=== PATIENT | female | born 1990 | race Caucasian/White ===

== ENCOUNTER 2016-12-30 03:56 | Inpatient (IN) | payer OTHER ==
[~2016-12-30] VITALS: Ht 167.6 cm; Wt 95.5 kg
[2016-12-30] VITALS (10 sets, daily range): BP systolic 121–132; BP diastolic 59; PULSE 106–125; TEMP 36.8–37.5; O2SAT 96–98; Ht 167.6 cm; Wt 95.5 kg
[~2016-12-30 03:56] MED LIST: ACET-1256 PO
[2016-12-30] MEDS ORDERED: LACTATED RINGER'S 1000ML 1,000 ML IV PRN (04:18)
[2016-12-30] MEDS ORDERED: LACTATED RINGER'S 1000ML 1,000 ML IV SCH ×2 (04:18→08:23)
--- NOTE | 2016-12-30 04:48 | Progress Note ---
Progress Note Date of Service Dec 30, 2016. Progress Note Admit Note 26 F P1001 at 37 weeks admitted to L&D in labor. Patient was seen earlier tonight in [facility] and was found to have a demise. She had an ultrasound done there by L&D nursing staff confirming this but we have no documentation of this. Patient states she had a visit this past Sunday and was fine then with movement up till this morning. No bleeding or leakage of fluid. Cervix is 1/80/-2/vertex. Will admit in labor and get bedside ultrasound to confirm diagnosis of demise. Patient is a prior C- section for breech and was planing to have a TOLAC.
[2016-12-30] MEDS ORDERED: BUTORPHANOL TARTRATE 1 MG/ML VIAL IV PRN ×2 (05:00→06:15)
[2016-12-30] MEDS ORDERED: BUTORPHANOL TARTRATE 1 MG/ML VIAL ONE ×4 (05:00→06:22)
[2016-12-30 05:01] LABS: HEMATOCRIT 38.2 % (37-47); MEAN CELL VOLUME 85.3 fL (80-100); MEAN CORPUSCULAR HEMOGLOBIN 29.9 pg (25-34); MEAN CORPUSCULAR HGB CONC 35.1 g/dl (32-36); MEAN PLATELET VOLUME 10.1 fL (7.4-10.4); PLATELET COUNT 200 K/uL (130-400); RED BLOOD COUNT 4.48 M/uL (4.2-5.4); WHITE BLOOD COUNT 17.03 K/uL (4.8-10.8)
[2016-12-30] MEDS ORDERED: PRENTAB26 PO (05:21)
[2016-12-30] MEDS ORDERED: CITRIC ACID/SODIUM CITRATE 15 ML UDC ONE (05:29)
--- NOTE | 2016-12-30 05:39 | HISTORY & PHYSICAL EXAMINATION ---
DATE OF ADMISSION: 12/30/2016 REASON FOR ADMISSION: at 37 weeks with ongoing labor. HISTORY OF PRESENT ILLNESS: The patient is a 26-year-old female para 1-0-0-1 who presents to labor and delivery at [facility] after having been to [facility] labor and delivery earlier in the night. She states that her labor started earlier this morning when she was at [facility] and they were not able to determine that she had heart tones. An ultrasound confirmed demise. There is no record of that ultrasound that we have from [facility]. The patient will have a formal documented ultrasound here. She has been having no problems during the . Her weight gain has been appropriate and she had her last visit on Sunday with a normal visit. PAST MEDICAL HISTORY: Positive for back spasm, neck pain, and chronic rhinitis. PAST SURGICAL HISTORY: Positive for in the past for a double footling breech. ALLERGIES: AZITHROMYCIN, CLARITHROMYCIN. MEDICATIONS: vitamins. SOCIAL HISTORY: The patient smokes half pack per day. Denies alcohol or drug use. PHYSICAL EXAMINATION: HEENT: Within normal limits. LUNGS: Clear to auscultation. COR: Regular rate and rhythm. ABDOMEN: Gravid with contractions. No bleeding. PELVIC: Cervix is 1, 80%, -2, vertex. EXTREMITIES: Within normal limits. NEUROLOGIC: Intact. FAMILY HISTORY: Noncontributory. ASSESSMENT: Term with demise at 37 weeks. PLAN: Planning for possible .
[2016-12-30] MEDS ORDERED: CITRIC ACID/SODIUM CITRATE 15 ML UDC PO ONE (06:00)
[2016-12-30] MEDS ORDERED: CEFAZOLIN IV 2,000 MG in DEXTROSE 5% 50ML 50 ML IV STA (06:06)
--- NOTE | 2016-12-30 06:25 | Progress Note ---
Progress Note Date of Service Dec 30, 2016. Progress Note Patient is not willing to undergo TOLAC. After counseling her extensively on benefits of TOLAC vs. repeat for demise I counseled her as to the risks of surgery vs. trial of labor. she is aware or risks and is OK to go ahead with planned surgery. She feels she will not be able to undergo labor with a demise. Consents signed and will get OR ready for repeat C- section.
[2016-12-30] MEDS ORDERED: MoRPHine SULFATE PF 1 MG/ML 10 ML AMP/VIAL ONE (07:09)
[2016-12-30] MEDS ORDERED: MIDAZOLAM HCL 1 MG/ML 2ML VIAL ONE (07:09)
[2016-12-30] MEDS ORDERED: OXYTOCIN INJ 10 UNITS/ML VIAL ONE (07:40)
[2016-12-30] MEDS ORDERED: EpHEDrine SULFATE 50MG/5ML SYR ONE (07:40)
[2016-12-30] MEDS ORDERED: ONDANSETRON INJ 2 MG/ML 2 ML VIAL ONE (07:40)
[2016-12-30] MEDS ORDERED: METOCLOPRAMIDE HCL INJ 5 MG/ML 2 ML VIAL ONE (07:40)
[2016-12-30] MEDS ORDERED: PHENYLEPHRINE 100MCG/ML 5ML SYR ONE (07:40)
--- NOTE | 2016-12-30 08:07 | DIAGNOSTIC IMAGING REPORT ---
ULTRASOUND LIMITED CLINICAL HISTORY: demise. COMPARISON STUDY: No priors. FINDINGS: Real-time, grayscale, color Doppler sonography of the gravid uterus is performed. There is a single intrauterine gestation. The femoral length measures 5.96 cm, corresponding to an estimated age of 31 weeks 0 days. No cardiac activity is identified. There is an abnormal/lobulated appearance of the brain. This is only seen on one image and is not well evaluated. There is only trace amniotic fluid. IMPRESSION: 1. No cardiac activity is identified. The appearance is consistent with demise as clinically suspected. 2. The femoral length measurement corresponds to an estimated age of 31 weeks 0 days. 3. The visualized brain is abnormal in appearance but not well evaluated on a single image. Note that this does not constitute an anatomic scan. Electronically signed by: Milton Chua M.D. 12/30/2016 8:06 AM Dictated Date/Time: 12/30/2016 8:03 AM
[2016-12-30] MEDS ORDERED: LACTATED RINGER'S 1000ML 500 ML IV PRN (08:18)
[2016-12-30] MEDS ORDERED: NALOXONE HCL INJ 1 MG in SODIUM CHLORIDE 0.9% 1000ML 1,000 ML IV PRN ×4 (08:18)
[2016-12-30] MEDS ORDERED: SODIUM CHLORIDE 0.9% 1000ML 1,000 ML IV PRN (08:18)
[2016-12-30] MEDS ORDERED: NALOXONE HCL INJ 0.08 MG in SYRINGE 1.8 ML IV PRN (08:18)
[2016-12-30] MEDS ORDERED: OXYTOCIN INJ 20 UNITS in LACTATED RINGER'S 1000ML 1,000 ML IV SCH (08:23)
--- NOTE | 2016-12-30 08:23 | [facility] Post Operative Brief Note ---
Immediate Operative Summary Operative Date Dec 30, 2016. Pre-Operative Diagnosis Previous Caesarean Section ; Demise 37 Weeks;Declines Post-Operative Diagnosis Same Procedure(s) Performed Repeat Caesarean Section; Delivery of a stillborn baby girl at [address] Hall Master Merchandiser Surgeon(s) Dr. Banks Estimated Blood Loss 400 cc Findings stillborn female Fluids (cc crystalloids) LR Specimens placenta-exam Drains gonsales Anesthesia spinal with Duramorph Complication(s) None Disposition L&D
[2016-12-30] MEDS ORDERED: EpHEDrine SULFATE INJ 50 MG/ML AMP IV PRN ×2 (08:30)
[2016-12-30] MEDS ORDERED: MoRPHine SULFATE PF 1 MG/ML 10 ML AMP/VIAL EPI PRN (08:30)
[2016-12-30] MEDS ORDERED: ATROPINE SULFATE 0.1 MG/ML 5ML SYR IV PRN (08:30)
[2016-12-30] MEDS ORDERED: MEPERIDINE HCL 25 MG/ML CARP IV PRN ×2 (08:30)
[2016-12-30] MEDS ORDERED: NALOXONE HCL 0.4 MG/1 ML VIAL/CARP IV PRN (08:30)
[2016-12-30] MEDS ORDERED: HYDROCORTISONE ACETATE 25 MG SUPP PR PRN (08:30)
[2016-12-30] MEDS ORDERED: SUPERCREAM 0.870 % 15GM JAR EXT PRN (08:30)
[2016-12-30] MEDS ORDERED: DiphenhydrAMINE HCL 50 MG/ML VIAL IV PRN (08:30)
[2016-12-30] MEDS ORDERED: MAGNESIUM HYDROXIDE SUSP 30 ML UDC PO PRN (08:30)
[2016-12-30] MEDS ORDERED: BENZOCAINE 20% AER SPR 82.5 GM CAN EXT PRN (08:30)
[2016-12-30] MEDS ORDERED: ONDANSETRON INJ 2 MG/ML 2 ML VIAL IV PRN ×2 (08:30)
[2016-12-30] MEDS ORDERED: KETOROLAC TROMETHAMINE 30 MG/ML VIAL IV. PRN ×2 (08:30)
[2016-12-30] MEDS ORDERED: LANOLIN OINT EXT PRN ×2 (08:30)
[2016-12-30] MEDS ORDERED: PHENYLEPHRINE 100MCG/ML 5ML SYR IV PRN (08:30)
[2016-12-30] MEDS ORDERED: DIPHTHERIA/TETANUS/PERTUSSIS 0.5 ML SYR/VIAL IM. ONE (08:30)
[2016-12-30] MEDS ORDERED: NALBUPHINE HCL INJ 10 MG/ML AMP IV PRN (08:30)
[2016-12-30] MEDS ORDERED: PROMETHAZINE HCL INJ 12.5 MG in SODIUM CHLORIDE 0.9% 50ML 50 ML IV PRN (08:30)
[2016-12-30] MEDS ORDERED: MEASLES, MUMPS & RUBELLA VIRUS VIAL SQ. ONE (08:30)
[2016-12-30] MEDS ORDERED: NO NARCOTICS OR SEDATIVES SCH (08:30)
[2016-12-30] MEDS ORDERED: PROMETHAZINE HCL INJ 25 MG in SODIUM CHLORIDE 0.9% 50ML 50 ML IV PRN (08:30)
[2016-12-30] MEDS ORDERED: SENNA 8.6 MG TAB PO PRN (08:30)
--- NOTE | 2016-12-30 09:08 | OPERATIVE REPORT ---
DATE OF OPERATION: 12/30/2016 PREOPERATIVE DIAGNOSIS: demise at 37 weeks and patient refusing a trial of labor after . POSTOPERATIVE DIAGNOSIS: Same. PROCEDURE: Repeat section, low segment transverse. SURGEON: Dr. Hall. CUSTOMER SERVICE ANALYST: Dr. Banks. ANESTHESIA: Spinal with Duramorph. FLUIDS: 2600 mL. ESTIMATED BLOOD LOSS: 400 mL. CLINICAL HISTORY: The patient is a 26-year-old female para 1-0-0-1 at 37 weeks and 1 day, admitted for a demise. The patient was seen at [facility] earlier in the morning and confirmed demise by ultrasound. When the patient found out she elected to travel to [place] where we had been taking care of her for her course. Unable to obtain ultrasound results from [place], we repeated the ultrasound here confirming demise and possible brain abnormality by ultrasound that was read this morning. Decision was then made to go ahead with a repeat section as patient refused to undergo a trial of labor. DESCRIPTION OF PROCEDURE: After satisfactory spinal anesthesia, the patient was prepped and draped in usual sterile fashion. Time out was called. Preoperative antibiotics were given. A low segment transverse incision over the lower Pfannenstiel incision was made entering into the abdominal cavity in successive layers without difficulty. Upon entering into the lower uterine segment, pickups with teeth and Metzenbaums were then used to develop a bladder flap. This was gently pushed down. 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 After the uterus was opened the incision was widened in the AP diameter. The infant was then delivered from the vertex presentation of a stillborn female. The cord was doubly clamped and cut and the placenta was then spontaneously delivered intact. The placenta was then removed for pathological examination. The uterus was exteriorized, cleaned of all debris. Ring forceps were then placed on both angles in the inferior margin. There was a slight midline extension inferiorly. This was repaired with 0 Vicryl suture in a continuous fashion up to the apex. The incision was then closed using 0 Vicryl suture in a continuous interlocking fashion followed by a second imbricating suture of 0 Vicryl suture. No active bleeding was noted. There was 1 small adhesion on the right that was lysed and removed with the Bovie. The contents of the pelvic cavity were then irrigated to clear. Uterus was then placed back into the normal anatomical position. The initial sponge, needle and instrument count were found to be correct. The lower uterine incision was inspected. No active bleeding was noted. Several pieces of Seprafilm were placed along the incision line and in the midline. The fascia was then reapproximated from both ends using 0 Vicryl suture in a continuous fashion. Subcuticular space was irrigated. Bleeders were cauterized. The subcuticular space was then reapproximated with 3-0 plain suture and sander were used to close the skin incision. Clear urine was noted from the Allison. Estimated blood loss 400 mL. The final sponge, needle and instrument count were found to be correct. The patient was then placed supine on a stretcher. She was taken to recovery room in stable condition. I attest to the content of the Intraoperative Record and any orders documented therein. Any exceptio ns are noted below.
[2016-12-30] MEDS: SIMETHICONE 80 MG CHEW PO SCH ×3 (13:00→20:10)
--- NOTE | 2016-12-30 14:34 | Anesthesiology Progress Note ---
Anesthesia Post Op Note Date & Time Dec 30, 2016 at 14:35 Notes Mental Status: alert / awake / arousable, participated in evaluation Pt Amnestic to Procedure: Yes Nausea / Vomiting: adequately controlled Pain: adequately controlled Airway Patency, RR, SpO2: stable & adequate BP & HR: stable & adequate Hydration State: stable & adequate Anesthetic Complications: no major complications apparent
[2016-12-31] MEDS ORDERED: DC INTRASPINAL MORPHINE PRN
[2016-12-31] MEDS ORDERED: ONDANSETRON INJ 2 MG/ML 2 ML VIAL IV PRN
[2016-12-31] MEDS ORDERED: OXYCODONE/ACETAMINOPHEN 5-325 TAB PO PRN
[2016-12-31] MEDS ORDERED: MEPERIDINE HCL 50 MG/ML CARP IV PRN
[2016-12-31] MEDS ORDERED: MEPERIDINE HCL 75 MG/ML CARP IV PRN
[2016-12-31] MEDS ORDERED: DiphenhydrAMINE HCL 50 MG/ML VIAL IV PRN
[2016-12-31] MEDS ORDERED: KETOROLAC TROMETHAMINE 30 MG/ML VIAL IV. PRN
[2016-12-31 00:15] VITALS: BP 123/58; PULSE 93; TEMP 37; O2SAT 98; O2SAT 99
[2016-12-31] MEDS: IBUPROFEN 600 MG TAB PO PRN ×4 (04:09→22:26)
[2016-12-31] MEDS: OXYCODONE/ACETAMINOPHEN 5-325 TAB PO PRN ×3 (04:09→22:26)
[2016-12-31 04:15] VITALS: BP 133/69; PULSE 105; TEMP 37.3; O2SAT 97
--- NOTE | 2016-12-31 07:01 | Surgery Progress Note ---
Surgery Progress Note Date of Service Dec 31, 2016. 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, No vomiting Objective Vital Signs: Date Time Temp Pulse Resp B/P Pulse Ox O2 Delivery O2 Flow Rate FiO2 12/31/16 04:15 37.3 105 18 133/69 97 Room Air 12/31/16 00:15 37.0 93 18 123/58 99 Room Air 12/31/16 00:15 18 98 12/31/16 00:15 98 Room Air 12/30/16 23:15 20 97 12/30/16 22:15 18 98 12/30/16 21:15 18 98 12/30/16 20:15 18 97 12/30/16 20:15 37.5 125 18 132/59 97 Room Air 12/30/16 19:15 18 98 12/30/16 18:40 18 98 12/30/16 18:15 18 96 12/30/16 17:15 20 97 12/30/16 16:15 18 97 12/30/16 15:15 20 96 12/30/16 15:15 96 Room Air 12/30/16 15:15 36.8 106 20 121/59 96 Room Air General Appearance: WD/WN, no apparent distress Head: normocephalic, atraumatic Neck: supple, no adenopathy, thyroid normal, no JVD, no carotid bruits, trachea midline Respiratory/Chest: chest non-tender, lungs clear, normal breath sounds, no respiratory distress, no accessory muscle use Cardiovascular: regular rate, rhythm, no edema, no gallop, no JVD, no murmur Abdomen: normal bowel sounds, non tender, non distended, soft, no organomegaly , no pulsatile mass Incision(s): clean, dry, intact, no erythema, no drainage Extremities: normal range of motion, non-tender, normal inspection, no pedal edema, no calf tenderness, normal capillary refill, pelvis stable Laboratory Results: Results Past 24 Hours Test 12/31/16 06:00 Range/Units Assessment & Plan c/sec day #1 for demise pt doing well continue care anticipate disch tomorrow
[2016-12-31 07:20] LABS: BASO % 0.1 %; BASO ABS # 0.02 K/uL (0-0.2); COMPLETE YES; EOS % 0.7 %; HEMATOCRIT 30.5 % (37-47); IG% 0.4 %; LYMPH % 10.9 %; LYMPH ABS # 1.89 K/uL (1.2-3.4); MEAN CELL VOLUME 85.2 fL (80-100); MEAN CORPUSCULAR HEMOGLOBIN 29.3 pg (25-34); MEAN CORPUSCULAR HGB CONC 34.4 g/dl (32-36); MEAN PLATELET VOLUME 9.7 fL (7.4-10.4); MONO % 8.9 %; PLATELET COUNT 179 K/uL (130-400); RED BLOOD COUNT 3.58 M/uL (4.2-5.4); WHITE BLOOD COUNT 17.35 K/uL (4.8-10.8)
[2016-12-31 08:00] VITALS: BP 132/74; PULSE 103; TEMP 36.6
[2016-12-31] MEDS: PRENATAL VITAMIN TAB PO SCH (09:06)
[2016-12-31] MEDS: FERROUS SULFATE 325 MG TAB PO SCH (09:06)
[2016-12-31] MEDS: SIMETHICONE 80 MG CHEW PO SCH ×4 (09:47→21:35)
[2016-12-31 16:12] VITALS: BP 119/71; PULSE 100; TEMP 36.5
[2016-12-31] MEDS ORDERED: BISACODYL 5 MG TABEC PO ONE (22:00)
[2016-12-31 22:45] VITALS: BP 121/60; PULSE 90; TEMP 36.4
[2017-01-01] MEDS: OXYCODONE/ACETAMINOPHEN 5-325 TAB PO PRN ×2 (07:35→12:26)
[2017-01-01] MEDS: IBUPROFEN 600 MG TAB PO PRN ×2 (07:36→12:26)
[2017-01-01 07:45] VITALS: BP 128/64; PULSE 88; TEMP 36.6; O2SAT 96
[2017-01-01] MEDS ORDERED: BISACODYL 10 MG SUPP PR PRN (08:30)
[2017-01-01] MEDS ORDERED: OXYC-57 PO (08:44)
[2017-01-01] MEDS ORDERED: MTR600X PO (08:44)
--- NOTE | 2017-01-01 08:46 | Discharge Instructions ---
Discharge Instructions Admission Reason for Admission: Term Demise Discharge Discharge Diagnosis / Problem: demise delivered by repeat Discharge Goals Goal(s): Routine recovery after Activity Recommendations Activity Limitations: as noted below Lifting Limitations: no more than 10 pounds Exercise/Sports Limitations: gradually increase as tolerated May Resume Sexual Activity: after follow-up appointment Shower/Bathe: no limitations Driving or Machine Use: after follow up in office . Instructions / Follow-Up Instructions / Follow-Up ACTIVITY RECOMMENDATIONS: * Vaginal rest (no tampons, douching, intercourse) until after doctor 's visit. * control as discussed with doctor. * Wear a bra for 24 hours/day for comfort. SPECIAL CARE INSTRUCTIONS: Medications: * vitamins, one tablet daily. Continue taking until prescription is complete. Call you doctor if: * Temperature greater than or equal to 100.4 degrees F or 38.0 degrees C. * Bleeding becomes heavier than the heaviest part of your period - saturating a sanitary pad within an hour. * Passing large clots. * Unrelieved pain. * Bleeding has a foul smelling odor. * Signs and symptoms of phlebitis: leg pain, warm, red or swollen area on leg. ___ incision has increased pain, redness, swelling, presence of any drainage, or if the incision starts to open up. FOLLOW UP VISIT: If appointment is not already scheduled: Please call doctor's office to schedule a follow-up appointment. Current Hospital Diet Patient's current hospital diet: Clear Liquid Diet Discharge Diet Recommended Diet: Regular Diet Procedures Procedures Performed: Repeat Caesarean Section; Delivery of a stillborn baby girl at 0748 Pending Studies Studies pending at discharge: no Medical Emergencies . Who to Call and When: Medical Emergencies: If at any time you feel your situation is an emergency, please call 911 immediately. . Non-Emergent Contact Non-Emergency issues call your: Primary Care Provider . . "Provider Documentation" section prepared by Merrill Hall. VTE Core Measure Inpt VTE Proph given/why not?: Treatment not indicated
--- NOTE | 2017-01-01 08:48 | Surgery Progress Note ---
Surgery Progress Note Date of Service Jan 01, 2017. Subjective Post OP Day: 2 + feeling well Objective Vital Signs: Date Time Temp Pulse Resp B/P Pulse Ox O2 Delivery O2 Flow Rate FiO2 12/31/16 22:45 Room Air 12/31/16 22:45 36.4 90 18 121/60 Room Air 12/31/16 16:12 36.5 100 20 119/71 Room Air 12/31/16 16:08 Room Air Abdomen: non tender, non distended, soft Incision(s): clean, dry, intact Extremities: non-tender, normal inspection, no pedal edema Assessment & Plan POD#2 discharged regular diet
[2017-01-01] MEDS: SIMETHICONE 80 MG CHEW PO SCH ×2 (09:28→13:21)
[2017-01-01] MEDS: PRENATAL VITAMIN TAB PO SCH (09:28)
[2017-01-01] MEDS: FERROUS SULFATE 325 MG TAB PO SCH (09:28)
[2017-01-01 13:13] VITALS: BP_DIAS 64; PULSE 88; TEMP 36.6
--- NOTE | 2017-01-10 14:18 | DISCHARGE SUMMARY ---
REASON FOR ADMISSION: The patient is 37 weeks with ongoing labor with a history of a demise that was diagnosed earlier in the evening at [facility] in [place]. She presents to labor and delivery at [facility] in labor. An ultrasound was performed confirming a demise despite the recent visit to [facility]. After this was confirmed, patient was given the option of having a trial of labor after . She, however, did not want to go through labor with a baby that had . Her request was then for a section and this was done under spinal anesthesia without difficulty. The patient consented to an autopsy. went without incident. The patient was subsequently discharged home in stable condition. Home going instructions were given. Regular diet on discharge. Medications on discharge included ibuprofen and oxycodone. Follow up will be in 1 week for a followup visit. FINAL DISCHARGE DIAGNOSIS: demise at term.
== END 2017-01-01 13:35 | disposition home or self-care (01) | DRG 766 ==
LOC: C.OPB 03:56 → C.LD 03:57 → C.OPB 04:22 → C.LD 04:22
PROVIDERS: ADMIT Obstetrics & Gynecology; ATTEND Obstetrics & Gynecology
PROC: 10D00Z1 Extraction of Products of Conception, Low, Open Approach (ICD-10-PCS; principal; 2016-12-30 06:54)
DX: O36.4XX0 Maternal care for intrauterine death, not applicable or unspecified (principal); O34.219 Maternal care for unspecified type scar from previous cesarean delivery; O99.330 Smoking (tobacco) complicating pregnancy, unspecified trimester; F17.210 Nicotine dependence, cigarettes, uncomplicated; Z37.1 Single stillbirth; Z3A.37 37 weeks gestation of pregnancy

== ENCOUNTER 2017-01-29 17:40 | Emergency (ER) | payer OTHER ==
[~2017-01-29] VITALS: Ht 162.6 cm; Wt 85.2 kg
[~2017-01-29 17:40] MED LIST changes: -ACET-1256 PO; +MTR600X PO; +OXYC-57 PO; +PRENTAB26 PO
[2017-01-29 18:04] VITALS: TEMP 36.8; Ht 162.6 cm; Wt 85.2 kg
[2017-01-29] MEDS ORDERED: SODIUM CHLORIDE 0.9% 1000ML 1,000 ML IV STA (19:52)
[2017-01-29 20:33] LABS: BASO % 0.2 %; BASO ABS # 0.03 K/uL (0-0.2); COMPLETE YES; EOS % 3.6 %; HEMATOCRIT 37.7 % (37-47); IG% 0.2 %; LYMPH % 25.8 %; MEAN CELL VOLUME 85.7 fL (80-100); MEAN CORPUSCULAR HEMOGLOBIN 29.3 pg (25-34); MEAN CORPUSCULAR HGB CONC 34.2 g/dl (32-36); MEAN PLATELET VOLUME 8.7 fL (7.4-10.4); MONO % 7.1 %; NEUT % 63.1 %; PLATELET COUNT 285 K/uL (130-400); WHITE BLOOD COUNT 13.98 K/uL (4.8-10.8)
[2017-01-29 21:09] LABS: BUN/CREATININE RATIO 10.4 (10-20); CALCIUM 9.1 mg/dl (8.5-10.1); CREATININE 0.94 mg/dl (0.60-1.20); POTASSIUM 3.8 mmol/L (3.5-5.1)
--- NOTE | 2017-01-29 21:22 | EMERGENCY ROOM VISIT NOTE ---
History Report prepared by Juliana: Zelalem Snider Under the Supervision of: Dr. Brayden Lopez D.O. First contact with patient: 19:46 Chief Complaint: ED VAG BLEEDING Stated Complaint: BLEEDING AFTER C SECTION History of Present Illness The patient is a 26 year old female who presents to the Emergency Room with complaints of persistent vaginal bleeding beginning yesterday. She notes she had a 10 days ago at [facility], and started bleeding yesterday. She thought she was having her normal period, but the bleeding was heavy and she notes using 2 overnight pads in the past hour. She had a follow up appointment yesterday at [facility] and her blood was noted to be dark. She contacted [facility] and was told to come to the ER. She reports pain with coughing and sneezing in her lower abdomen. This was the patient's second , and resulted in a miscarriage. The patient denies having any other medication problems. Source of History: patient Onset: yesterday Position: other (vagina) Quality: other (vaginal bleeding) Timing: other (persistent ) Associated Symptoms: + abdominal pain (with coughing and sneezing) Review of Systems See HPI for pertinent positives & negatives. A total of 10 systems reviewed and were otherwise negative. Past Medical & Surgical Medical Problems: (1) No Known Active Medical Problems (2) term demise Family History No pertinent family history stated. Social History Smoking Status: Current Every Day Smoker Marital Status: Housing Status: lives with family Current/Historical Medications No Active Prescriptions or Reported Meds Allergies Coded Allergies: Azithromycin (Verified Allergy, Intermediate, HIVES, 01/01/17) Clarithromycin (Verified Allergy, Intermediate, HIVES, 01/01/17) Physical Exam Vital Signs Date Time Temp Pulse Resp B/P Pulse Ox O2 Delivery O2 Flow Rate FiO2 01/29/17 20:00 79 16 124/73 98 Room Air 01/29/17 18:04 36.8 67 17 122/90 95 Room Air Physical Exam CONSTITUTIONAL/VITAL SIGNS: Reviewed / noted above. GENERAL: Non-toxic in appearance. INTEGUMENTARY: Warm, dry, and [place]. HEAD: Normocephalic. EYES: without scleral icterus or trauma. ENT/OROPHARYNX: clear and moist. LYMPHADENOPATHY/NECK: Is supple without lymphadenopathy or meningismus. RESPIRATORY: Lungs clear and equal. CARDIOVASCULAR: Regular rate and rhythm. GI/ABDOMEN: Soft and nontender. No organomegaly or pulsatile mass. No rebound or guarding. Normal bowel sounds. EXTREMITIES: Warm and well perfused. BACK: No CVA tenderness. NEUROLOGICAL: Intact without focal deficits. PSYCHIATRIC: normal affect. MUSCULOSKELETAL: Normally developed with good muscle tone. PELVIC: There is minimal bleeding and mucus from the cervix. There was no other areas of bleeding. No CMT. Medical Decision & Procedures Laboratory Results 01/29/17 20:19 Red Blood Count 4.40, Mean Corpuscular Volume 85.7, Mean Corpuscular Hemoglobin 29.3, Mean Corpuscular Hemoglobin Concent 34.2, Mean Platelet Volume 8.7, Neutrophils (%) (Auto) 63.1, Lymphocytes (%) (Auto) 25.8, Monocytes (%) (Auto) 7.1, Eosinophils (%) (Auto) 3.6, Basophils (%) (Auto) 0.2, Neutrophils # (Auto) 8.82, Lymphocytes # (Auto) 3.60, Monocytes # (Auto) 0.99, Eosinophils # (Auto) 0.51, Basophils # (Auto) 0.03 01/29/17 20:19 Test 01/29/17 19:45 01/29/17 20:19 Urine Test NEG (NEG) White Blood Count 13.98 K/uL (4.8-10.8) Red Blood Count 4.40 M/uL (4.2-5.4) Hemoglobin 12.9 g/dL (12.0-16.0) Hematocrit 37.7 % (37-47) Mean Corpuscular Volume 85.7 fL (80-100) Mean Corpuscular Hemoglobin 29.3 pg (25-34) Mean Corpuscular Hemoglobin Concent 34.2 g/dl (32-36) Platelet Count 285 K/uL (130-400) Mean Platelet Volume 8.7 fL (7.4-10.4) Neutrophils (%) (Auto) 63.1 % Lymphocytes (%) (Auto) 25.8 % Monocytes (%) (Auto) 7.1 % Eosinophils (%) (Auto) 3.6 % Basophils (%) (Auto) 0.2 % Neutrophils # (Auto) 8.82 K/uL (1.4-6.5) Lymphocytes # (Auto) 3.60 K/uL (1.2-3.4) Monocytes # (Auto) 0.99 K/uL (0.11-0.59) Eosinophils # (Auto) 0.51 K/uL (0-0.5) Basophils # (Auto) 0.03 K/uL (0-0.2) RDW Standard Deviation 45.7 fL (36.4-46.3) RDW Coefficient of Variation 14.7 % (11.5-14.5) Immature Granulocyte % (Auto) 0.2 % Immature Granulocyte # (Auto) 0.03 K/uL (0.00-0.02) Anion Gap 7.0 mmol/L (3-11) Est Creatinine Clear Calc Drug Dose 96.7 ml/min Estimated GFR () 97.7 Estimated GFR (Non- 84.3 BUN/Creatinine Ratio 10.4 (10-20) Calcium Level 9.1 mg/dl (8.5-10.1) Laboratory results as stated above per my review. Medications Administered Medications (Trade) Dose Ordered Sig/Jacquie Route Start Time Stop Time Status Last Admin Dose Admin Sodium Chloride (Nss 1000ml) 1,000 ml @ 999 mls/hr Q1H1M STAT IV 01/29/17 19:52 01/29/17 20:52 DC 01/29/17 19:52 999 MLS/HR ED Course 1946: Previous medical records were reviewed. The patient was evaluated in room C11B. A complete history and physical examination was performed. 1951: Ordered NSS 1,000 ml @ 999 mls/hr IV. Medical Decision Differential diagnosis: Etiologies such as ectopic , dysfunction uterine bleeding, bleeding dyscrasia, trauma, infection, as well as others were entertained. This is a 26-year-old female who presents to the ED with a chief complaint of vaginal bleeding. The patient states that she had a stillborn on December 30. She is a . She is currently not . She states that she started having what she felt was a regular period yesterday. She states that her bleeding seems to be heavier today. She saturated 2 pads over the past hour. She reports some mild discomfort in the left lower quadrant. She has no other complaints. No dizziness or lightheadedness. Her vital signs are normal. Physical exam was unremarkable. Pelvic exam did not reveal any significant bleeding from the cervix. There is no other areas of bleeding in the vagina. The hemoglobin is 14. PRP is normal. test was negative. The patient is felt to be stable for discharge. NSS 1 L given IV. Impression Primary Impression: Dysfunctional uterine bleeding Scribe Attestation The scribe's documentation has been prepared under my direction and personally reviewed by me in its entirety. I confirm that the note above accurately reflects all work, treatment, procedures, and medical decision making performed by me. Departure Information Dispostion Home / Self-Care Prescriptions No Active Prescriptions or Reported Meds Referrals Jace Fitzgerald M.D.[email or web address]) (PCP) Patient Instructions [facility] Additional Instructions Follow-up with your palliative care nurse Return for any concerns or worsening. Talk to your palliative care nurse a few are saturating more than 2 pads every hour for at least 12 hours.
[2017-01-29 21:28] VITALS: BP 123/76; PULSE 76; O2SAT 98
== END 2017-01-29 21:29 | disposition home or self-care (01) ==
LOC: C.EDB 17:41 → C.EDC 21:29
DX: N93.8 Other specified abnormal uterine and vaginal bleeding (principal); R10.30 Lower abdominal pain, unspecified; F17.200 Nicotine dependence, unspecified, uncomplicated